=== PATIENT | female | born 1935 | race Caucasian/White ===

== ENCOUNTER 2022-02-24 14:19 | Inpatient (IN) | payer MEDICARE, MEDICAID ==
[~2022-02-24] VITALS: Ht 157.5 cm; Wt 60.8 kg
[2022-02-24] MEDS ORDERED: SODIUM CHLORIDE 0.9% 1000ML BAG (SEPSIS BOLUS) IV ONE (14:45)
[2022-02-24] MEDS ORDERED: SODIUM CHLORIDE 0.9% 1,000 ML IV ONE (14:45)
[2022-02-24 14:55] LABS: BASOPHILS % 0.7 % (0.0-2.0); EOSINOPHILS % 3.3 % (0.0-5.0); HEMATOCRIT. 39.8 % (36.0-48.0); HEMOGLOBIN. 13.3 g/dL (12.0-16.0); LYMPHOCYTES % 15.4 % (20.0-50.0); MEAN CORPUSCULAR VOLUME 89.8 fL (81.0-99.0); MEAN PLATELET VOLUME 7.9 fl (7.4-10.4); MONOCYTES % 5.4 % (2.0-8.0); NEUTROPHILS % 75.2 % (40.0-76.0); PLATELET 211 x1000/uL (130-400); RED BLOOD CELL COUNT 4.44 mill/uL (4.2-5.4); RED CELL DISTRIBUTION WIDTH 14.3 % (11.6-14.6)
[2022-02-24 15:03] LABS: CHLORIDE 102 mEq/L (98-107)
[2022-02-24 15:05] LABS: PARTIAL THROMBOPLASTIN TIME 24.4 sec (23.4-31.0); PROTHROMBIN TIME 10.9 sec (9.6-11.0)
[2022-02-24 17:08] LABS: CLARITY URINE CLOUDY (CLEAR); COLOR URINE YELLOW (YELLOW); KETONES URINE TRACE (NEGATIVE); LEUKOCYTE ESTERASE URINE 3+ (NEGATIVE); NITRITE URINE NEGATIVE (NEGATIVE); OCCULT BLOOD URINE NEGATIVE (NEGATIVE); PH URINE 5.5 (4.5-8.0); PROTEIN URINE 1+ (NEGATIVE); SPECIFIC GRAVITY URINE 1.021 (1.005-1.030); UROBILINOGEN URINE 0.2 E.U./dL (0.2-1.0)
[2022-02-24 17:45] VITALS: BP 148/91
[2022-02-24] MEDS ORDERED: AZITHROMYCIN 500MG/250ML 250 ML IV ONE (18:15)
[2022-02-24] MEDS ORDERED: CEFTRIAXONE 1 G PREMIX 50 ML IV ONE (18:15)
[2022-02-24 20:00] VITALS: BP 156/98
== END 2022-02-24 21:30 | disposition left against medical advice (07) | DRG 689 ==
LOC: ER 14:19 → 6WST 16:37 → ENRESERV 17:09 → 7EST 20:50
PROVIDERS: ADMIT Internal Medicine; ATTEND Internal Medicine
DX: N39.0 Urinary tract infection, site not specified (principal); U07.1 COVID-19; J84.9 Interstitial pulmonary disease, unspecified; I48.91 Unspecified atrial fibrillation; I10 Essential (primary) hypertension; Z53.29 Procedure and treatment not carried out because of patient's decision for other reasons; R55 Syncope and collapse
CPT/HCPCS: 36415; 71045; 74176; 80053; 81003; 82962; 83605; 83880; 84484; 85025; 87426; 93005; 99285; J7030